=== PATIENT | female | born 1990 | race Caucasian/White ===

== ENCOUNTER 2017-10-09 01:09 | Emergency (ER) | payer SELFPAY ==
[~2017-10-09] VITALS: Ht 165.1 cm; Wt 90.7 kg
[2017-10-09 01:40] VITALS: BP 142/90
[2017-10-09] MEDS ORDERED: IBUPROFEN 600 MG TABLET. PO ONE (02:15)
[2017-10-09] MEDS ORDERED: AZITHROMYCIN 250 MG TABLET. PO ONE (02:45)
[2017-10-09] MEDS ORDERED: cefTRIAXone IM 250 MG VIAL IM ONE (02:45)
--- NOTE | 2017-10-09 02:48 | PHYS DOC ---
Past Medical History Past Medical History: No Pertinent History Past Surgical History: No Surgical History Alcohol Use: None Drug Use: None Adult General Chief Complaint Chief Complaint: SORE THROAT HPI HPI Patient is a 27 year old female who presents with sore throat this evening. No fevers chills, nausea vomiting sweats. No dysphonia, dysphagia, trismus or drooling. Reports occasional cough. Patient used Chloraseptic spray with limited improvement.[] Review of Systems Review of Systems Review symptoms as per history of present illness. All other review symptoms are negative. All other systems were reviewed and found to be within normal limits, except as documented in this note. Current Medications Current Medications Current Medications Medications (Trade) Dose Ordered Sig/Ruben Start Time Stop Time Status Last Admin Dose Admin Azithromycin (Zithromax) 1,000 mg 1X ONCE 10/09/17 02:45 10/09/17 02:46 DC 10/09/17 02:45 1,000 MG Ceftriaxone Sodium (Rocephin Im) 250 mg 1X ONCE 10/09/17 02:45 10/09/17 02:46 DC 10/09/17 02:45 250 MG Ibuprofen (Motrin) 600 mg 1X ONCE 10/09/17 02:15 10/09/17 02:16 DC 10/09/17 02:15 600 MG Allergies Allergies Allergies Coded Allergies Type Severity Reaction Last Updated Verified No Known Drug Allergies 10/09/17 No Physical Exam Physical Exam Constitutional: Well developed, well nourished, no acute distress, non-toxic appearance. [] HENT: Normocephalic, atraumatic, bilateral external ears normal, oropharynx moist. [] Eyes: PERRLA, EOMI, conjunctiva normal. [] Neck: Normal range of motion, no tenderness. [] Cardiovascular:Heart rate regular rhythm, no murmur. [] Lungs & Thorax: Bilateral breath sounds clear to auscultation. [] Abdomen: Bowel sounds normal, soft, no tenderness. [] Skin: Warm, dry, no erythema. [] Back: No tenderness, no CVA tenderness. [] Extremities: No tenderness, no cyanosis. [] Neurologic: Alert and oriented X 3, normal motor function, normal sensory function, no focal deficits noted. [] Psychologic: Affect normal, judgement normal, mood normal. [] Current Patient Data Vital Signs Vital Signs Date Time Temp Pulse Resp B/P (MAP) Pulse Ox O2 Delivery O2 Flow Rate FiO2 10/09/17 01:40 98.3 90 18 98 Room Air 98.3 EKG EKG [] Radiology/Procedures Radiology/Procedures [] Course & Med Decision Making Course & Med Decision Making Pertinent Labs and Imaging studies reviewed. (See chart for details) [Patient with nl exam. She expressed concern of possible STI exposure. Rocephin and Zithromax and follow up with your PCP. ] Dragon Disclaimer Dragon Disclaimer This electronic medical record was generated, in whole or in part, using a voice recognition dictation system. Departure Departure Impression: Primary Impression: Pharyngitis Disposition: HOME, SELF-CARE Condition: GOOD Patient Instructions: Sore Throat, [id number] Additional Instructions: Please take ibuprofen for throat pain and use salt water gargles as needed. Follow-up with your PCP or community clinic if further concerns of possible STI and for throat culture results. JENNA KEYS DO Oct 09, 2017 02:48
[2017-10-09 07:28] LABS: NEGATIVE OBC STREP NEG; POSITIVE OBC STREP POS
== END 2017-10-09 03:15 | disposition home or self-care (01) ==
LOC: ER 01:09
DX: J02.9 Acute pharyngitis, unspecified (principal)
CPT/HCPCS: 87070; 87880; 96372; 99283; J0696; Q0144

== ENCOUNTER 2019-04-25 14:08 | Emergency (ER) | payer SELFPAY ==
[~2019-04-25] VITALS: Ht 165.1 cm; Wt 90.7 kg
[2019-04-25 14:18] VITALS: BP 118/61
[2019-04-25] MEDS ORDERED: IBUPROFEN 200 MG TABLET. PO ONE (14:45)
[2019-04-25] MEDS ORDERED: LIDOCAINE 1% PF 2 ML VIAL. INJ ONE (14:45)
--- NOTE | 2019-04-25 14:58 | PHYS DOC ---
Past Medical History Past Medical History: No Pertinent History Past Surgical History: No Surgical History Alcohol Use: Occasionally Drug Use: None Adult General Chief Complaint Chief Complaint: LACERATION/AVULSION HPI HPI 28-year-old female presents to ER for complaints of falling down approximately 5 wooden steps this morning around 1 AM. Patient denies loss of consciousness. Patient states she had been drinking alcohol denies large quantity. Patient sta dahlia she struck her face and bilateral knees on the steps she fell. Patient denies any head, neck, or back pain. Patient denies incontinence of bowel or bladder or any urinary symptoms. Pt states she took naproxen shortly after the fall denies taking any other medications. Patient denies any dizziness, abdominal pain, nausea or vomiting, or confusion. Patient reports she has been ambulatory without assistance. Pt is UTD on tetanus. Patient is currently on her menstrual cycle. Review of Systems Review of Systems Constitutional: Denies fatigue/LOC Eyes: Denies change in visual acuity, redness, or eye pain [] HENT: Denies head/neck pain Respiratory: Denies cough or shortness of breath [] Cardiovascular: No additional information not addressed in HPI [] GI: Denies abdominal pain, nausea, vomiting, or incontinence : Denies dysuria or hematuria [] Musculoskeletal: Denies back pain. Reports bilat. knee pain Integument: Reports laceration bilat. knees and rt side upper/lower lip bruising and swelling. Reports bruising Neurologic: Denies headache, focal weakness or sensory changes. Denies dizziness Endocrine: Denies polyuria or polydipsia [] All other systems were reviewed and found to be within normal limits, except as documented in this note. Current Medications Current Medications Current Medications Medications (Trade) Dose Ordered Sig/Ruben Start Time Stop Time Status Last Admin Dose Admin Ibuprofen (Motrin) 600 mg 1X ONCE 04/25/19 14:45 04/25/19 14:46 DC 04/25/19 14:47 600 MG Lidocaine HCl (Xylocaine-Mpf 1% 2ml Vial) 4 ml 1X ONCE 04/25/19 14:45 04/25/19 14:46 DC 04/25/19 14:48 4 ML Allergies Allergies Allergies Coded Allergies Type Severity Reaction Last Updated Verified No Known Drug Allergies 10/09/17 No Physical Exam Physical Exam Constitutional: Well developed, well nourished, no acute distress, non-toxic appearance. Clear speech HENT: Normocephalic, atraumatic, bilateral ears normal, oropharynx moist- rt side upper/lower lip ecchymosis/swelling- lacerations, no dental injury, nose normal. Fully opening/closing of mandible- no palp. deformity/crepitus. Bruising just below rt side chin- no swelling/deformity/open wounds. Small bruise to rt cheek- no orbital swelling/crepitus Eyes: 3mm PERRLA, no nystagmus, conjunctiva normal, no discharge. [] Neck: Normal range of motion, no tenderness mid line cspine or palp. deformity, supple, no stridor. Trachea midline Cardiovascular: Heart rate regular rhythm, no murmur [] Lungs & Thorax: Bilateral breath sounds clear to auscultation- resp. equal/nonlabored. No chest wall tenderness/palp. deformity or visible injury Abdomen: Bowel sounds normal, soft, no tenderness/distention- no visible injury Skin: Warm, dry, no erythema, no rash. [] Back: No tenderness mid line spine or palp. deformity, no CVA tenderness. [] Extremities: No cyanosis, no clubbing, ROM intact all extremities, no edema. 2+ radial/bilat. dorsalis pedis. Small laceration below lt anterior knee- no swelling/deformity/drainage. Tender at site. Laceration below rt anterior knee- no swelling/deformity/drainage. Neurologic: Alert and oriented X 3, normal motor function, normal sensory function, no focal deficits noted. [] Psychologic: Affect normal, judgement normal, mood normal. [] Current Patient Data Vital Signs Vital Signs Date Time Temp Pulse Resp B/P (MAP) Pulse Ox O2 Delivery O2 Flow Rate FiO2 04/25/19 14:18 98.3 63 16 118/61 (80) 98 Room Air 98.3 EKG EKG [] Radiology/Procedures Radiology/Procedures PROCEDURE: KNEE RIGHT 3V 3 views right knee dated 04/25/2019. No comparison available. CLINICAL INDICATION: Pain after injury. FINDINGS: 3 views of the right knee show normal bony alignment. No displaced fracture. There is soft tissue laceration anteriorly near the level the patellar tendon. There is some soft tissue gas laterally. No radiopaque foreign body. No apparent joint effusion or loose body. Impression: 1. No acute bony abnormality. 2. Soft tissue laceration with soft tissue gas extending laterally. Electronically signed by: Shubham Damon MD (04/25/2019 2:53 PM) [facility] [place] and SIGNED BY: SHUBHAM DAMON MD DATE: 04/25/19 1453 Laceration Repair by me: [id number] Anesthesia: 1% lidocaine locally 2 mL Location: Rt anterior upper zimmerman- no knee involvement Tendon/Joint/Nerves: No injury Foreign body: None detected after copious irrigation and exploration Technique: Simple Interrupted Sutures #6 5.0 Nylon Complexity: 5 cm Patient's bleeding was easily controlled in the department and there is no indication of anemia. No evidence of compartment syndrome, neurologic injury, vascular injury, open joint, tendon laceration, or foreign body. Patient is appropriate for outpatient follow up. 48 hour wound check. Scar minimization instructions given. Course & Med Decision Making Course & Med Decision Making Pertinent Imaging studies reviewed. (See chart for details) Pt was evaluated in the ER following a mechanical fall around 1 AM this morning. Pt denied any LOC- remained A&Ox3 denying any head/neck/back pain, LEGER, or neuro sxs. Patient had x-ray of right knee obtained with no acute findings for fracture or dislocation. Laceration repair was done with thorough cleansing and no foreign body found on exam. Patient had #6 5.0 nylon sutures with loose wound closure as wound is approx 12 hrs-wound approximated well. Patient advised on home wound care. Patient to follow-up with her primary care physician for suture removal in 5-7 days. Education provided on signs and symptoms to return to ER. Discharge instructions were discussed. Patient to follow-up with primary care physician if symptoms persist or with any concerns. Dragon Disclaimer Dragon Disclaimer This electronic medical record was generated, in whole or in part, using a voice recognition dictation system. Departure Departure Impression: Primary Impression: Fall Additional Impressions: Contusion, lips Laceration Knee pain, bilateral Disposition: 01 HOME, SELF-CARE Condition: STABLE Referrals: NO PCP (PCP) Patient Instructions: Contusion, [id number], Elastic Bandage and RICE, Fall Prevention and Home Safety, Knee Pain, Laceration Care, Adult, Sutured Wound Care Additional Instructions: Tylenol and/or ibuprofen as needed for pain as directed on container. Sutures need to be removed by her primary care physician and 5-7 days. Monitor wound for signs of infection. Problem Qualifiers SIVA MCGUIRE APRN Apr 25, 2019 14:58
== END 2019-04-25 15:55 | disposition home or self-care (01) ==
LOC: ER 14:08
DX: S81.811A Laceration without foreign body, right lower leg, initial encounter (principal); S81.011A Laceration without foreign body, right knee, initial encounter; S81.012A Laceration without foreign body, left knee, initial encounter; S00.531A Contusion of lip, initial encounter; S00.83XA Contusion of other part of head, initial encounter; W10.8XXA Fall (on) (from) other stairs and steps, initial encounter; Y93.89 Activity, other specified; Y92.89 Other specified places as the place of occurrence of the external cause; Y99.8 Other external cause status
CPT/HCPCS: 12002; 73562; 99284